=== PATIENT | male | born 1960 | race African-American/Black ===

== ENCOUNTER 2017-11-26 22:10 | Emergency (ER) | payer OTHER ==
[~2017-11-26] VITALS: Ht 177.8 cm; Wt 84.0 kg
[~2017-11-26 22:10] MED LIST: abilify; zoloft
[2017-11-26 22:25] VITALS: BP 112/76
== END 2017-11-27 01:15 | disposition left against medical advice (07) ==
LOC: ER 22:10
DX: Z53.21 Procedure and treatment not carried out due to patient leaving prior to being seen by health care provider (principal); Z88.6 Allergy status to analgesic agent